=== PATIENT | male | born 1950 | race Caucasian/White ===

== ENCOUNTER → 2019-02-23 | Outpatient (RCR) | payer OTHER | LOC: PT 13:29 | PROVIDERS: ATTEND Orthopaedic Surgery | DX: M75.41 Impingement syndrome of right shoulder (principal); M75.121 Complete rotator cuff tear or rupture of right shoulder, not specified as traumatic; M75.21 Bicipital tendinitis, right shoulder ==

== ENCOUNTER 2019-03-24 09:48 | Outpatient (RCR) | payer OTHER | END 2019-03-25 | LOC: PT 09:48 | PROVIDERS: ATTEND Orthopaedic Surgery | DX: M75.41 Impingement syndrome of right shoulder (principal); M75.121 Complete rotator cuff tear or rupture of right shoulder, not specified as traumatic; M75.21 Bicipital tendinitis, right shoulder | CPT/HCPCS: 97139 ==

== ENCOUNTER 2019-06-09 06:51 | Outpatient (RCR) | payer OTHER | END 2019-06-24 | LOC: PT 06:51 | PROVIDERS: ATTEND Orthopaedic Surgery | DX: M75.41 Impingement syndrome of right shoulder (principal); M75.121 Complete rotator cuff tear or rupture of right shoulder, not specified as traumatic; M75.21 Bicipital tendinitis, right shoulder | CPT/HCPCS: 97139 ==